=== PATIENT | female | born 1990 | race Caucasian/White ===

== ENCOUNTER 2016-07-09 23:25 | Emergency (ER) ==
[2016-07-09] MEDS ORDERED: ASPIRIN PO STA (23:42)
--- NOTE | 2016-07-09 23:54 | ED EKG INTERP ---
EKG Interpretation - EKG Time of EKG reading by physician:: 23:53 EKG Read and Signed by:: Griffin Cedeno Rate: 83 Rhythm: NSR [place]: normal QRS: normal SD Interval: normal Attestation - Scribe Verification/Attestation Scribe:: Juana Miller Acting as Scribe for:: Griffin Cedeno Scribe documention review:: This chart was documented by a scribe and accurately reflects the service the provider performed and the decisions made by the provider.
[2016-07-09 23:56] LABS: MANUAL DIFF NEEDED? NO
[2016-07-10 00:05] LABS: BASO% 0.2 % (0.0-0.8); EOS# 0.12 X1000 (0.0-0.7); HEMATOCRIT 37.2 % (37.0-47.0); HEMOGLOBIN 12.5 g/dL (12.0-16.0); IMM GRAN# 0.02 X1000 (0.0-0.04); IMM GRAN% 0.2 % (0.0-0.5); LYMPH# 4.06 X1000 (1.2-3.4); LYMPH% 33.3 % (20.5-51.1); MCH 29.8 PG (27-31); MCHC 33.6 g/dL (33-37); MCV 88.8 FL (81-99); MONO# 0.98 X1000 (0.11-0.59); MPV 10.4 FL (7.4-10.4); NEUT% 57.3 % (42.2-75.2); PLT 355 X1000 (130-400); RBC 4.19 XMIL (4.2-5.4)
[2016-07-10 00:18] LABS: INR 1.07; PROTIME 11.4 Seconds (9.2-11.7); PTT 27.1 Seconds (22.0-36.0)
[2016-07-10 00:31] LABS: AGAP 16; ALBUMIN 4.3 g/dL (3.5-5.0); ALKALINE PHOSPHATASE 87 U/L (32-104); BUN 12 mg/dL (8-22); CALCIUM 9.5 mg/dL (8.8-10.2); CHLORIDE 100 mmol/L (98-107); CK PROFILE 122 U/L (24-173); COSMO 278; GOT 20 U/L (10-30); GPT 21 U/L (10-36); MAGNESIUM 1.9 mg/dL (1.5-2.7); POTASSIUM 4.3 mmol/L (3.5-5.1); SODIUM 139 mmol/L (136-145); TCO2 23 mmol/L (25-35); TOTAL BILIRUBIN 0.49 mg/dL (0.20-1.00); TOTAL PROTEIN 7.4 g/dL (6.3-8.3)
--- NOTE | 2016-07-10 00:50 | PROVIDER DOCUMENTATION ---
HPI-Chest Pain - General Chief Complaint: Chest Pain Stated Complaint: chest pain Time Seen by Provider: 07/09/16 23:50 Source: patient Allergies/Adverse Reactions: Patient Allergies Allergy/AdvReac Type Severity Reaction Status Date / Time No Known Allergies Allergy Verified 07/09/16 23:47 Home Medications: [place] Carbonate 300 mg PO TID 01/17/16 Risperidone [Risperdal] 0.5 mg PO DAILY 01/17/16 Trazodone [Desyrel] 50 mg PO QHS 01/17/16 - History of Present Illness-CP Nature of Presenting Problem: 25 y/o WF c/o L anterior CP x 3 days. Pt states that her mother from an [place] 3 days ago. States that since then she has noted the CP and hasn't been able to sleep. States that she is upset and has been vomiting today. States 2 episodes of vomiting. Denies any SI or HI in the past. CP is achy in nature and 6/10, radiates to jaw. Denies any blurry vision, radiation, abd. pain, cough, SOB, fever/chills, D/C. Review of Systems - Adult - REVIEW OF SYSTEMS - ADULT Constitutional: reports: no symptoms reported. denies: chills, fever Eyes: reports: no symptoms reported. denies: blurred vision, double vision Ears, Nose, Mouth & Throat: reports: no symptoms reported. denies: ear pain, nose pain Cardiovascular: reports: chest pain. denies: palpitations Respiratory: reports: no symptoms reported. denies: cough, shortness of breath Gastrointestinal: reports: see HPI, nausea, vomiting. denies: abdominal pain, constipation, diarrhea Genitourinary: reports: no symptoms reported. denies: dysuria, frequency Musculoskeletal: reports: no symptoms reported. denies: joint pain, joint swelling Integumentary: reports: no symptoms reported. denies: nail changes, rash Neurological: reports: no symptoms reported. denies: numbness, paresthesia Psychiatric: reports: anxiety, emotional problems Endocrine: reports: no symptoms reported. denies: cold intolerance, heat intolerance Hematologic/Lymphatic: reports: no symptoms reported. denies: easy bruising, prolonged bleeding Allergic/Immunologic: reports: no symptoms reported All Other Systems: Reviewed and Negative Past History - Adult - PAST MEDICAL HISTORY-ADULT Review of Records: reports: Nursing Assessment Review, Medications Reviewed Cardiovascular: reports: arrhythmia, HTN Respiratory: reports: asthma Gastrointestinal: reports: diverticulosis Obstetrical/Gynecological: reports: other () Genitourinary: reports: kidney stones (hx), chronic UTI's Psychiatric: reports: anxiety, bipolar, depression Endocrine/Immune: reports: thyroid disorder (hypothyroid) Additional History: Freq ER visits - PRIOR SURGERIES/PROCEDURES Surgical/Procedure History: reports: , orthopedic (extremity) (left knee sx), other (thyroidectomy/lithotripsy) - IMMUNIZATION STATUS Childhood Immunizations: UTD, See Nurse Assessment Flu Vaccine: See Nurse Assessment Physical Exam-General - PHYSICAL EXAM-ADULT Initial Vital Signs Reviewed: Yes - CONSTITUTIONAL General Appearance: alert, mild distress, obese, anxious - EYES Eyes: pink conjunctivae - HEAD, EARS, NOSE, MOUTH & THROAT HENMT: normocephalic/atraumatic, moist mucous membranes - NECK Neck: normal inspection - RESPIRATORY Respiratory: lungs clear, normal breath sounds. negative: chest non-tender ( mild TTP to anterior chest), crackles, rales, rhonchi, stridor, wheezing - CARDIOVASCULAR Cardiovascular: regular rate, rhythm. negative: bradycardia, tachycardia - GASTROINTESTINAL (ABDOMEN) Abdominal Exam: normal bowel sounds, non tender, soft. negative: distended, guarding, rigid, rebound - MUSCULOSKELETAL Back Exam: no CVA tenderness Extremity: normal gait - SKIN Integumentary: normal color, normal turgor, warm/dry - NEUROLOGIC Neurologic: negative: aphasia - PSYCHIATRIC Psych/Mental Status: normal thought content, normal thought process, anxious, tearful Progress - PLAN OF CARE/RESULTS Progress/Plan/Lab Results: Laboratory Tests 07/09/16 07/09/16 07/09/16 23:49 23:49 23:49 WBC 12.21 H RBC 4.19 L Hgb 12.5 Hct 37.2 MCV 88.8 MCH 29.8 MCHC 33.6 RDW Std Deviation 13.5 Plt Count 355 MPV 10.4 Immature Gran % (Auto) 0.2 Neut % (Auto) 57.3 Lymph % (Auto) 33.3 [place] % (Auto) 8.0 Eos % (Auto) 1.0 Baso % (Auto) 0.2 Immature Gran # (Auto) 0.02 Neut # (Auto) 7.01 H Lymph # (Auto) 4.06 H [place] # (Auto) 0.98 H Eos # (Auto) 0.12 Baso # (Auto) 0.02 PT INR PTT (Actin FS) Sodium 139 Potassium 4.3 Chloride 100 Carbon Dioxide 23 L Anion Gap 16 BUN 12 Creatinine 0.8 Estimated GFR/1.73 m2 > 60 BUN/Creatinine Ratio 15 Glucose 107 H Calculated Osmolality 278 Calcium 9.5 Magnesium 1.9 Total Bilirubin 0.49 AST 20 ALT 21 Alkaline Phosphatase 87 Creatine Kinase 122 Troponin T Swc-K-Ijtfhdbtask Pept 180 H Total Protein 7.4 Albumin 4.3 Globulin 3.1 Albumin/Globulin Ratio 1.4 [place] 07/09/16 07/09/16 07/09/16 23:49 23:49 23:49 WBC RBC Hgb Hct MCV MCH MCHC RDW Std Deviation Plt Count MPV Immature Gran % (Auto) Neut % (Auto) Lymph % (Auto) [place] % (Auto) Eos % (Auto) Baso % (Auto) Immature Gran # (Auto) Neut # (Auto) Lymph # (Auto) [place] # (Auto) Eos # (Auto) Baso # (Auto) PT 11.4 INR 1.07 PTT (Actin FS) 27.1 Sodium Potassium Chloride Carbon Dioxide Anion Gap BUN Creatinine Estimated GFR/1.73 m2 BUN/Creatinine Ratio Glucose Calculated Osmolality Calcium Magnesium Total Bilirubin AST ALT Alkaline Phosphatase Creatine Kinase Troponin T < 0.010 Uqk-X-Wcwltwkacjr Pept Total Protein Albumin Globulin Albumin/Globulin Ratio [place] 0.10 L Orders Category Date Time Status Cardiac Monitoring DIRECTED Care 07/09/16 23:42 Active ED: Urine Bedside ORDERED Care 07/09/16 23:59 Active Saline Loc NOW Care 07/09/16 23:42 Active CHEST-2 VIEWS [RAD] Stat Exams 07/09/16 23:42 Taken CBC WITH ELECTRONIC DIFF [HEME] Stat Lab 07/09/16 23:49 Completed CK PROFILE [SP CHEM] Stat Lab 07/09/16 23:49 Completed COMPREHENSIVE METABOLIC PANEL [CHEM] Stat Lab 07/09/16 23:49 Completed D-DIMER [CHEM] Stat Lab 07/09/16 23:49 Stop Req LITHIUM [TDM] Stat Lab 07/10/16 00:34 Completed MAGNESIUM [CHEM] Stat Lab 07/09/16 23:49 Completed PRO B-NATRIURETIC PEPTIDE Stat Lab 07/09/16 23:49 Completed PROTIME WITH INR [COAG] Stat Lab 07/09/16 23:49 Completed PTT [COAG] Stat Lab 07/09/16 23:49 Completed TROPONIN T Stat Lab 07/09/16 23:49 Completed Aspirin Med 07/09/16 23:42 Discontinued 325 mg PO STAT STA Lorazepam [Ativan] Med 07/10/16 00:53 Discontinued 1 mg PO NOW ONE EKG [EKG] Stat Ther 07/09/16 23:31 Ordered Vital Signs Temp Pulse Resp BP Pulse Ox 07/09/16 23:44 98.9 F 81 18 139/75 100 No Known Allergies Allergy (Verified 07/09/16 23:47) Levothyroxine [Synthroid] 100 microgm PO DAILY #0 tablet 01/19/15 [place] Carbonate 300 mg PO TID 01/17/16 Risperidone [Risperdal] 0.5 mg PO DAILY 01/17/16 Trazodone [Desyrel] 50 mg PO QHS 01/17/16 Atenolol 50 mg PO DAILY #30 tablet 01/19/16 Risperidone [Risperdal] 0.5 mg PO DAILY #30 tablet 07/10/16 Trazodone [Desyrel] 50 mg PO QHS #30 tablet 07/10/16 Laboratory 07/09/16 07/09/16 07/09/16 23:49 23:49 23:49 WBC RBC Hgb Hct MCV MCH MCHC RDW Std Deviation Plt Count MPV Immature Gran % (Auto) Neut % (Auto) Lymph % (Auto) [place] % (Auto) Eos % (Auto) Baso % (Auto) Immature Gran # (Auto) Neut # (Auto) Lymph # (Auto) [place] # (Auto) Eos # (Auto) Baso # (Auto) PT 11.4 INR 1.07 PTT (Actin FS) 27.1 Sodium Potassium Chloride Carbon Dioxide Anion Gap BUN Creatinine Estimated GFR/1.73 m2 BUN/Creatinine Ratio Glucose Calculated Osmolality Calcium Magnesium Total Bilirubin AST ALT Alkaline Phosphatase Creatine Kinase Troponin T < 0.010 Iqr-P-Dwxwfoeubcx Pept Total Protein Albumin Globulin Albumin/Globulin Ratio [place] 0.10 L 07/09/16 07/09/16 07/09/16 23:49 23:49 23:49 WBC 12.21 H RBC 4.19 L Hgb 12.5 Hct 37.2 MCV 88.8 MCH 29.8 MCHC 33.6 RDW Std Deviation 13.5 Plt Count 355 MPV 10.4 Immature Gran % (Auto) 0.2 Neut % (Auto) 57.3 Lymph % (Auto) 33.3 [place] % (Auto) 8.0 Eos % (Auto) 1.0 Baso % (Auto) 0.2 Immature Gran # (Auto) 0.02 Neut # (Auto) 7.01 H Lymph # (Auto) 4.06 H [place] # (Auto) 0.98 H Eos # (Auto) 0.12 Baso # (Auto) 0.02 PT INR PTT (Actin FS) Sodium 139 Potassium 4.3 Chloride 100 Carbon Dioxide 23 L Anion Gap 16 BUN 12 Creatinine 0.8 Estimated GFR/1.73 m2 > 60 BUN/Creatinine Ratio 15 Glucose 107 H Calculated Osmolality 278 Calcium 9.5 Magnesium 1.9 Total Bilirubin 0.49 AST 20 ALT 21 Alkaline Phosphatase 87 Creatine Kinase 122 Troponin T Kwq-T-Zwzillzgzed Pept 180 H Total Protein 7.4 Albumin 4.3 Globulin 3.1 Albumin/Globulin Ratio 1.4 [place] Discussed results and medications with pt. Pt states wants refill of her home medications; discussed inability to fill lithium and to f/u with PCP for it. Discussed pt with Dr. Cedeno; he agreed with tx plan. - XRAY 1 XRAY Study: Chest XRAY Interpretation: NAD Departure - Departure Time of Disposition Order: 01:38 DIAGNOSIS: Anxiety, Medication refill, Acute reaction to stress Chest pain Qualifiers: Chest pain type: unspecified Qualified Code(s): R07.9 - Chest pain, unspecified Disposition: HOME 01 Certified Medical Emergency: Emergent Condition: Stable Additional Instructions: Follow up with mental health specialist for further management. Take medications as directed. ED Follow Up Instructions: You have been treated by a care provider in the Emergency Department. These instructions are being provided to you so you can have an understanding of how to care for yourself upon discharge. Upon discharge from the Emergency Department, you are responsible for making arrangements for follow-up care by a physician of your choice. Take all prescribed medications as directed. Return to the Emergency Department immediately for any new or worsening symptoms. You may call the Physician Referral phone number at [phone] to obtain a list of Physicians who are taking new patients. Prescriptions: Trazodone [Desyrel] 50 mg PO QHS #30 tablet Risperidone [Risperdal] 0.5 mg PO DAILY #30 tablet Referrals: Marquise Taylor [Primary Care Provider] - Deonte Salinas MD [STAFF PHYSICIAN] - Attestation - Physician/ Mid-level Attestation Patient care was provided by Mid-level provider (CERTIFIED PEER SPECIALIST/PA):: Yes Mid-level provider:: Carol Vargas Mid-level documentation review:: The Mid-level provider documentation, treatment plan and medical decision making was reviewed by the physician who agrees with all treatment and medical decision making by the MLP.
[2016-07-10] MEDS ORDERED: ATIVAN PO ONE (00:53)
[2016-07-10 02:03] VITALS: BP 146/98
--- NOTE | 2016-07-10 06:20 | EKG Report ---
Test Performed on : 07/09/2016 11:35:51 PM Test Reason : CP Blood Pressure : / mmHG Vent. Rate : 083 BPM Atrial Rate : 083 BPM P-R Int : 154 ms QRS Dur : 088 ms QT Int : 382 ms P-R-T Axes : 040 026 018 degrees QTc Int : 448 ms Normal sinus rhythm. Normal ECG When compared with ECG of 09-JUL-2016 23:35, (Unconfirmed) No significant change was found Unconfirmed Result
--- NOTE | 2016-07-10 08:18 | Diag Imaging Result Document ---
PROCEDURE NAME: CHEST-2 VIEWS - 07/09/2016 FRONTAL AND LATERAL CHEST, TWO VIEWS: COMPARISON: 01/19/2016. FINDINGS: The lungs are well expanded. The heart is not enlarged. The vessels are not distended. No pneumonia. No pleural effusions. No free air beneath the diaphragm. IMPRESSION: No acute abnormality.
== END 2016-07-10 02:03 | disposition home or self-care (01) ==
LOC: ED 23:25
DX: R07.89 Other chest pain (principal); F43.0 Acute stress reaction; F41.9 Anxiety disorder, unspecified; R11.2 Nausea with vomiting, unspecified; I10 Essential (primary) hypertension; F32.9 Major depressive disorder, single episode, unspecified; F31.9 Bipolar disorder, unspecified; E66.9 Obesity, unspecified; Z79.899 Other long term (current) drug therapy; Z76.0 Encounter for issue of repeat prescription; Z87.442 Personal history of urinary calculi; Z87.440 Personal history of urinary (tract) infections
CPT/HCPCS: 71020; 80053; 80178; 81025; 82550; 83735; 83880; 84484; 85025; 85379; 85610; 85730; 93005; 99283

== ENCOUNTER 2018-08-18 09:56 | Inpatient (IN) ==
--- NOTE | 2018-08-15 11:00 | HISTORY AND PHYSICAL ---
HISTORY OF PRESENT ILLNESS: The patient is a 27-year-old, white female, G 3, P 2 with an EDC of 08/21/2018 by a 22-week ultrasound scan, placing her at 39 weeks and 1 day. The patient has a history of prior x2 and also has expressed desire for permanent sterilization and has signed Medicaid tubal papers. Patient has had limited care. She was seen [address] Stephens and had [address] Reyes in [place], the maternal specialist. Patient has only been seen here at [facility]; this is her third visit here. The patient has numerous medical problems. 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 Obesity. Late care. She also has hypothyroidism, chronic hypertension, a history of a positive urine drug screen of newly-diagnosed hepatitis C, bipolar disorder and homeless. The baby is going to be placed for adoption. PAST MEDICAL HISTORY: Significant for hypothyroidism, but presently her thyroid numbers are normal range, hypertension which preceded , hepatitis C which was recent diagnosed, bipolar disorder which is a fairly new diagnosis in the last 3 years, as well as substance abuse which also was fairly new. PAST SURGICAL HISTORY: x2. She has had left knee surgery x2, as well as a thyroid surgery. PAST OB HISTORY: G 3, P 2, x2. CPR AMBULANCE DRIVER HISTORY: Menarche at age 13. FAMILY HISTORY: Significant for myocardial infarction in her mother, who , and a father with diabetes mellitus. SOCIAL HISTORY: Tobacco use positive. Alcohol use: None. She does report that she had used amphetamines previously this . MEDICATIONS: vitamins, as well as labetalol 100 mg b.i.d. and Risperdal 2 mg daily. ALLERGIES: No known drug allergies. PHYSICAL EXAMINATION: VITAL SIGNS: Height 5 feet 8 inches, weight 254 pounds. Blood pressure is 135/90, pulse 84, respirations 20. heart rate was 136. HEENT: Pupils equal, round, reactive to light and accommodation. Extraocular movements intact. Oropharynx clear. NECK: Supple. No thyromegaly. LUNGS: Clear to auscultation. HEART: Regular rate and rhythm. ABDOMEN: Gravid. Fundal height is measured at 38.5 cm. EXTREMITIES: No clubbing, cyanosis or edema noted. Patient does have scars on both forearms from previous self-injury. ASSESSMENT AND PLAN: A 27-year-old, white female, 3, para 2 today at 39 weeks gestation with a history of prior section times 2. Also, desires permanent sterilization and has signed Medicaid tubal papers. Patient scheduled for a repeat section on 08/18/2018. Patient counseled about the risks of surgery, including bleeding, infection, bowel or bladder injury. Patient also counseled about the permanency of tubal ligation, failure rate of 2 to 4 per 1000, as well as the availability of reversible alternatives such as intrauterine device, control pills, patches, etcetera. The patient is planning for the baby to be adopted; the adoptive mother is involved in her receiving care, and is planning to be present in the nursery after delivery. We will continue with patient's current medications, including labetalol 100 mg twice daily and Risperdal 2 mg daily. Also, we will have Development Writer consulted at the time of admission. cc: Tay Dove III, MD
[2018-08-15 11:04] LABS: BASO# 0.02 X1000 (0.0-0.2); BASO% 0.2 % (0.0-0.8); EOS# 0.11 X1000 (0.0-0.7); EOS% 0.9 % (0.0-10.0); HEMATOCRIT 36.5 % (37.0-47.0); IMM GRAN# 0.05 X1000 (0.0-0.04); IMM GRAN% 0.4 % (0.0-0.5); LYMPH% 24.3 % (20.5-51.1); MCH 29.3 PG (27-31); MCHC 32.9 g/dL (33-37); MCV 89.2 FL (81-99); MONO# 1.06 X1000 (0.11-0.59); MONO% 8.9 % (1.7-9.3); MPV 9.9 FL (7.4-10.4); NEUT% 65.3 % (42.2-75.2); PLT 260 X1000 (130-400); RBC 4.09 XMIL (4.2-5.4); RDW 12.2 % (11.5-14.5); WBC 11.94 X1000 (4.8-10.8)
[2018-08-18] MEDS ORDERED: PEPCID PO ONE (10:18)
[2018-08-18] MEDS ORDERED: REGLAN PO ONE (10:18)
[2018-08-18] MEDS ORDERED: KEFZOL 1 GM/D5W 1 GM/50 ML IVPB IV PRN (10:18)
[2018-08-18] MEDS ORDERED: LR 1,000 ML IV SCH (10:30)
[2018-08-18] MEDS ORDERED: BICITRA PO ONE (10:45)
[2018-08-18] MEDS ORDERED: REGLAN IV ONE (10:45)
[2018-08-18] MEDS ORDERED: DIPRIVAN 1% ONE (11:50)
[2018-08-18] MEDS ORDERED: DURAMORPH ONE (11:53)
[2018-08-18] MEDS ORDERED: PITOCIN ONE (12:54)
[2018-08-18] MEDS ORDERED: MYLICON PO PRN (13:33)
[2018-08-18] MEDS ORDERED: PHENERGAN IM PRN (13:33)
[2018-08-18] MEDS ORDERED: M-M-R II VACCINE SUBQ ONE (13:33)
[2018-08-18] MEDS ORDERED: AMBIEN PO PRN (13:33)
[2018-08-18] MEDS ORDERED: PITOCIN 20 UNITS/NS 20 UNITS/1,000 ML IV.SOLN IV ONE (13:33)
[2018-08-18] MEDS ORDERED: PITOCIN IM PRN (13:33)
[2018-08-18] MEDS ORDERED: NORCO-5 PO PRN (13:33)
[2018-08-18] MEDS ORDERED: ATARAX PO PRN (13:33)
[2018-08-18] MEDS ORDERED: DULCOLAX PR PRN (13:33)
[2018-08-18] MEDS ORDERED: DEMEROL IM PRN (13:33)
[2018-08-18] MEDS ORDERED: DEMEROL PO PRN ×2 (13:33)
[2018-08-18] MEDS ORDERED: HYDROXYZINE IM PRN (13:33)
[2018-08-18] MEDS ORDERED: BOOSTRIX VACCINE IM ONE (13:33)
[2018-08-18] MEDS ORDERED: PITOCIN 10 UNITS/LR 10 UNIT/1,000 ML IV.SOLN IV SCH (13:45)
--- NOTE | 2018-08-18 13:54 | OPERATIVE NOTE ---
PROCEDURE DATE: 08/18/2018 PREOPERATIVE DIAGNOSIS: 1. Intrauterine at 39 and 4/7 weeks with a history for repeat . 2. The patient also expressed desire for permanent sterilization. POSTOPERATIVE DIAGNOSIS: 1. Intrauterine at 39 and 4/7 weeks with a history for repeat . 2. The patient also expressed desire for permanent sterilization. 3. Operative delivery of a male infant, 6 pounds 12 ounces with Apgars of 9 and 10 at 12:32 on 06/17/2019. PROCEDURE: 1. Repeat low-transverse . 2. Bilateral tubal ligation. SURGEON: Tay Dove III, MD. ASSIST: Dr. Ferrera. ANESTHESIA: Spinal, Dr. Duvall. FINDINGS: Normal-appearing uterus, tubes, and ovaries. COMPLICATIONS: None. ESTIMATED BLOOD LOSS: 500 mL. SPECIMENS REMOVED: Right and left fallopian tube segments. DRAINS: Clements to straight drain. COUNTS: All counts were correct x3. INDICATIONS: Patient is a 27-year-old white female, G3, P2, at 39 and 4/7 weeks with history of C- section x2 who is here for elective repeat and tubal ligation. The infant is up for adoption. The patient counseled about the risks of surgery including bleeding, infection, bowel or bladder injury. DESCRIPTION OF PROCEDURE: Patient was taken to Labor and Delivery OR, had spinal anesthesia placed and then was placed in supine position with a roll under right hip and then she was then prepped and draped in a sterile fashion with placement Clements catheter. Adequate anesthesia was noted by using Allis clamps on skin and then a Pfannenstiel skin incision was made using a scalpel and this was taken down to the fascia layer. Small leonard was made in the rectus fascia. The fascia was then extended bilaterally by curved Cage scissors and pickups and then blunt and sharp dissection of the rectus fascia was performed superiorly and inferiorly. The rectus muscles then divided midline. Peritoneal layer was entered bluntly. The peritoneal incision was extended superiorly and inferiorly with care taken to avoid the bladder. The bladder reflection was performed with difficulty due to extensive scarring and just a little of the reflection was able to be created with Metzenbaum scissors. A transverse incision was made on lower uterine segment using scalpel and then once into the amniotic cavity meconium-stained fluid was noted. The uterine incision was then extended bilaterally by surgeon's fingers and then the head was then elevated toward the hysterotomy site. Gentle fundal pressure was performed until the head was delivered atraumatically. Bulb suction of nose and mouth. The rest the body was delivered atraumatically with gentle fundal pressure. Umbilical cord was clamped twice and cut. handed to the nursery nurse in attendance for delivery. Cord blood samples obtained at this time. Placenta was then manually extracted. Uterus was exteriorized. Wet lap was placed around the uterus. Dry lap was then used to curette the uterine cavity of clots and debris x2. The uterine incision was then closed using 0 chromic in a running, locking fashion. A small area of oozing was noted on the left side. This was made hemostatic with 2 [id number] stitches. At this point in time, the right fallopian tube was grasped in the isthmus and the mesosalpinx was cauterized using electrocautery and through this incision, 0 chromic was then used to ligate a portion of the fallopian tube. This portion of fallopian tube was then excised using Metzenbaum scissors and then electrocautery was used to obtain hemostasis as well as to cauterize the ends of the tubes. The right fallopian tube segment was handed off to be placed in a specimen container. The left fallopian tube was then identified, grasped with Stephany clamp and small leonard was made in the mesosalpinx using electrocautery and then 0 chromic suture was then used to ligate a portion of the left fallopian tube. This was then excised using Metzenbaum scissors and electrocautery was then again used to touch the ends of the fallopian tube and good hemostasis was noted. At this point in time, the posterior cul-de-sac was irrigated copiously and then the uterus was replaced back into the abdominal cavity. The right and left pericolic gutters were then cleansed using moist lap sponges and the bladder reflection and the uterine incision were inspected and good hemostasis was noted. The peritoneal layer was then closed using 2-0 chromic in a running fashion x1. The fascia layer was then closed using 0 PDS in a running fashion x1. Subcutaneous layer was then irrigated and electrocautery was then used to obtain hemostasis. The skin was then reapproximated using freddie. Patient tolerated the procedure well, was taken to recovery room in stable condition. All counts were correct x3. cc: Tay Dove III, MD
[2018-08-18] MEDS: TORADOL IV SCH ×2 (14:22→20:12)
[2018-08-18 14:37] LABS: UR AMPHETAMINES QUAL PRESUMPTIVE POSITIVE (NONE DETECT); UR BARBITUATES QUAL NONE DETECTED (NONE DETECT); UR BENZODIAZEPIN QUAL PRESUMPTIVE POSITIVE (NONE DETECT); UR CANNABINOIDS QUAL PRESUMPTIVE POSITIVE (NONE DETECT); UR COCAINE QUAL NONE DETECTED (NONE DETECT); UR METHAMPHETAMINE QUAL PRESUMPTIVE POSITIVE (NONE DETECT); UR OPIATES QUAL PRESUMPTIVE POSITIVE (NONE DETECT); UR OXYCODONE QUAL NONE DETECTED (NONE DETECT); UR PCP QUAL NONE DETECTED (NONE DETECT); UR PROPOXYPHENE QUAL NONE DETECTED (NONE DETECT); UR TCA QUAL NONE DETECTED (NONE DETECT)
[2018-08-18] MEDS ORDERED: BENADRYL IV PRN (15:16)
[2018-08-18] MEDS ORDERED: NARCAN INJ PRN (15:16)
[2018-08-18] MEDS ORDERED: ZOFRAN IV PRN ×2 (15:16)
[2018-08-18] MEDS ORDERED: ZOFRAN ODT PO PRN (15:16)
[2018-08-18 15:38] LABS: UR METHADONE QUAL NONE DETECTED (NONE DETECT)
[2018-08-18] MEDS: MYLICON PO SCH ×2 (17:49→21:06)
[2018-08-18] MEDS ORDERED: MORPHINE IV PRN (18:12)
[2018-08-18] MEDS ORDERED: TRANDATE PO ONE (18:30)
[2018-08-18] MEDS: OFIRMEV 1000 MG/ISOTONIC SOLN 1,000 MG/100 ML BOTTLE IV SCH (18:37)
[2018-08-18] MEDS ORDERED: TRANDATE PO SCH (21:00)
[2018-08-18] MEDS: PERICOLACE PO SCH (21:06)
[2018-08-18] MEDS: RISPERDAL PO SCH (21:06)
[2018-08-18] MEDS: PITOCIN 10 UNITS/NS 1,000 ML IV SCH (22:01)
[2018-08-19] MEDS: OFIRMEV 1000 MG/ISOTONIC SOLN 1,000 MG/100 ML BOTTLE IV SCH ×4 (00:54→17:32)
[2018-08-19] MEDS: TORADOL IV SCH ×2 (02:00→07:51)
[2018-08-19] MEDS: PITOCIN 10 UNITS/NS 1,000 ML IV SCH (05:59)
[2018-08-19 08:07] LABS: BASO# 0.02 X1000 (0.0-0.2); BASO% 0.2 % (0.0-0.8); HEMATOCRIT 30.8 % (37.0-47.0); HEMOGLOBIN 9.9 g/dL (12.0-16.0); IMM GRAN# 0.03 X1000 (0.0-0.04); IMM GRAN% 0.3 % (0.0-0.5); LYMPH# 1.77 X1000 (1.2-3.4); LYMPH% 17.5 % (20.5-51.1); MCH 29.2 PG (27-31); MCHC 32.1 g/dL (33-37); MCV 90.9 FL (81-99); MONO# 1.04 X1000 (0.11-0.59); MONO% 10.3 % (1.7-9.3); MPV 10.4 FL (7.4-10.4); NEUT# 7.15 X1000 (1.4-6.5); NEUT% 70.7 % (42.2-75.2); PLT 208 X1000 (130-400); RBC 3.39 XMIL (4.2-5.4); RDW 12.3 % (11.5-14.5); WBC 10.11 X1000 (4.8-10.8)
[2018-08-19] MEDS: MYLICON PO SCH ×4 (12:22→21:39)
[2018-08-19] MEDS ORDERED: LR 1,000 ML IV SCH (13:34)
[2018-08-19] MEDS: NORCO-10 PO PRN (19:58)
[2018-08-19] MEDS: MOTRIN PO PRN (19:58)
[2018-08-19] MEDS: RISPERDAL PO SCH (21:40)
[2018-08-19] MEDS: TRANDATE PO SCH (21:41)
[2018-08-19] MEDS: PERICOLACE PO SCH (21:42)
[2018-08-20] MEDS: MOTRIN PO PRN ×3 (03:59→22:01)
[2018-08-20] MEDS: NORCO-10 PO PRN ×4 (03:59→22:01)
[2018-08-20] MEDS: TRANDATE PO SCH ×3 (09:39→21:16)
[2018-08-20] MEDS ORDERED: FLU VACCINE IM ONE (10:15)
[2018-08-20] MEDS: MYLICON PO SCH ×3 (13:02→21:16)
[2018-08-20] MEDS: PERICOLACE PO SCH (21:16)
[2018-08-20] MEDS: RISPERDAL PO SCH (21:46)
[2018-08-21] MEDS: MYLICON PO SCH (08:47)
[2018-08-21] MEDS: TRANDATE PO SCH (08:47)
[2018-08-21] MEDS: MOTRIN PO PRN (08:47)
[2018-08-21] MEDS: NORCO-10 PO PRN (08:47)
[2018-08-21 08:52] VITALS: BP 180/94
--- NOTE | 2018-08-22 05:22 | DISCHARGE SUMMARY ---
ADMISSION DATE: 08/18/2018 DISCHARGE DATE: 08/21/2018 DISCHARGE DIAGNOSES: 1. Thirty-nine weeks gestation. 2. Prior section x2. 3. Desire for permanent sterilization. 4. Limited care. 5. Obesity. 6. Hypothyroidism. 7. Chronic hypertension. 8. History of drug abuse with positive urine drug screen. 9. Hepatitis C. 10. Bipolar disorder. 11. Homelessness. 12. Baby for adoption. PROCEDURES PERFORMED: Repeat low transverse section with bilateral tubal ligation. SUMMARY: A 27-year-old, 3, para 2, with the above complications, was admitted at term with a history of 2 prior sections and was for repeat section and BTL. Her procedure was uncomplicated and she was delivered of a male , weight 6 pounds and 12 ounces. 's were 9 and 10. Baby was placed with its adoptive parents. Her course was uneventful. Blood pressures ranged 130-150/60-90. Hemoglobin is 12 preop and 9.9 postop. Her urine drug screen is positive for opiates, amphetamines, methamphetamines, benzodiazepines, and cannabinoids. For the history of drug abuse, she did have a social work consult. On the day of discharge, her exam was unremarkable. She was passing flatus and taking p.o. well. The fundus is nontender. The incision was clean and uninfected. She is discharged home in good condition on the morning of postoperative day #3. DIET: Regular. ACTIVITY: Pelvic rest. MEDICATIONS: 1. [place] 5/325 one p.o. q. 4 hours p.r.n., #20. 2. Iron sulfate 325 mg p.o. b.i.d., #60. 3. Motrin 600 mg p.o. t.i.d., #30. FOLLOW-UP: Follow up will be with Dr. Dove in 1 week for staple removal. cc: MD Dr Petty Veras MD ADDENDUM: patient had been on labetalol during for HTN which she did not receive post . On the day of discharge her BPs began to elevate again to as high as 180/90s and she was give RX for labetalol 100 mg po bid # 60 MTDD
== END 2018-08-21 10:20 | disposition home or self-care (01) | DRG 784 ==
LOC: P.LD 09:56
PROVIDERS: ADMIT Obstetrics & Gynecology; ATTEND Obstetrics & Gynecology
CPT/HCPCS: 80104; 80301; 80305; 85025; 85461; 86592; 86850; 86870; 86900; 86901; 94761; 94799; A9270; G0431; G0434; G0477; J0131; J0690; J1885; J2270; J2274; J2275; J2590; J2765; J2790; J7120; Q9974